=== PATIENT | male | born 1940 ===

== ENCOUNTER 2017-06-06 14:28 | Inpatient (IN) | payer MEDICARE ==
[2017-06-06] MEDS ORDERED: Albuterol 2.5 MG/3 ML NEB.SOL* (0.083%) INH PRN (18:13)
[2017-06-06] MEDS ORDERED: CMCS:Melatonin (NF) 3 MG TAB PO PRN (18:20)
[2017-06-06] MEDS ORDERED: Acetaminophen TAB* 325 MG PO PRN (18:20)
[2017-06-06] MEDS: Senna TAB PO SCH (19:51)
[2017-06-06] MEDS: Morphine TAB Extended Release (*) 15 MG TAB.ER PO SCH (19:52)
[2017-06-06] MEDS: Albuterol 2.5 MG/3 ML NEB.SOL* (0.083%) INH SCH (20:03)
[2017-06-06 20:32] LABS: INR 1.19 (0.77-1.02)
[2017-06-07] MEDS: Ondansetron INJ* 2 MG/ML VIAL IV PRN ×2 (00:02→06:03)
[2017-06-07] MEDS: Morphine INJ* 4 MG/ML 1 ML CARPUJECT IV PRN ×2 (00:40→06:03)
--- NOTE | 2017-06-07 01:20 | HP ---
HISTORY AND PHYSICAL: DATE OF ADMISSION: 06/06/17 REFERRING PHYSICIAN: Dr. Celia Espinosa from [facility]. PRIMARY CARE PHYSICIAN: Dr. Castrejon. ATTENDING AND ADMITTING PHYSICIAN: Dr. Edgar Tiwari.* (DICTATED BY TUTU BARBOZA NP) HISTORY OF PRESENT ILLNESS: This is a 76-year-old male patient who was recently admitted to [facility] after having a biopsy of his liver done on 05/25/17. Of significant note, the patient does have a history of lung cancer. 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 Around 06/01/17, the patient was having some right upper quadrant pain and then that lasted another 2 days. The patient then went to the emergency department at [place] to be evaluated for the abdominal pain that was on 06/03/17. At that point, he was admitted and had several CT scans with and without contrast, serial abdominal exams as well as CT scans showing that he had some intraparenchymal bleed and hematoma within the liver, looks like with some interlesional bleeding. The mass appears to be 6.7 cm and there may be other masses as well. I do not have access to the films at this time, I am just reading the reports, but it does look like they were trying to do a CT angiogram of the belly to determine if this was arterial in nature versus a venous bleed; however, I do not have that report as such. Dr. Tiwari did reach out to Dr. Isidro Colbert to evaluate the films before we accepted the patient for transfer, the patient will be evaluated to see if he can go down to the IR suite if it is in fact an arterial bleed if cautery can be performed to stop the bleeding. In the meantime, the patient did have several transfusions. Three units of packed red blood cells were transfused prior to transfer as well as several units of FFP. The patient's hemoglobin is around 9 and has been stable. He is clinically shortness of breath and does remain clinically short of breath. Also of significant note, he has chronic pleural effusions, looks like it is loculated and does not appear to be any empyema per the notes that I am reading; however, he is oxygen dependent, had some tachycardia as well as shortness of breath with exertion. PAST MEDICAL HISTORY: Significant for COPD, hypothyroidism, hypertension, and history of lung cancer of the right upper lobe with non-small cell carcinoma, status post chemo and radiation. Last treatment approximately 10 years ago. PAST SURGICAL HISTORY: Did have a Mediport placed for his chemotherapy. Also, he has a PICC line in the right upper extremity. ALLERGIES: No known drug allergies. FAMILY HISTORY: Noncontributory. SOCIAL HISTORY: The patient does have a [id number] history of smoking, quit 9 years ago. Also has alcohol, but only socially but has not used any alcohol in the past year. Has no history of drug use. He lives at home with his . He is retired. REVIEW OF SYSTEMS: A 10-point review of systems is negative except as noted in the HPI. PHYSICAL EXAMINATION GENERAL: The patient is awake and alert, mildly anxious. VITAL SIGNS: Are currently, temperature 97.4, pulse 93, respiratory rate 16, oxygen saturation is 99% on 2 L, blood pressure is 119/55. LABORATORY DATA: Laboratories from the sending facility showed WBC is 4.8, hemoglobin 7.5, which was repeated and after transfusion it is now 9.6, hematocrit 29.7, and platelets 158. Sodium 136, potassium 4.6, chloride 96, bicarb 36, BUN 28, creatinine 0.9, glucose 142, AST 914, of significant note, AST was 2143 when he was initially admitted, ALT 1176 which is down from 1711, alk phos 170, which is down from 193. Ammonia level was 32, lipase 54, PT 14.1 , INR 1.1. Gastric occult was positive. Stool occult was negative. Again, CAT scan imaging shows this intraparenchymal hemorrhage and chronic pleural effusions. IMPRESSION: The patient has been accepted for transfer and is accepted to telemetry service. PLAN: He will be seen by Dr. Colbert, who has already been contacted, who will evaluate his CAT scan and determine what the primary course of treatment will be , whether the bleeding is stabilized at this point or he will need additional treatment in the form of ablation in the IR suite. For now, we will continue his morphine sulfate q.12 hours, also with 4 mg IV for breakthrough as needed. Continue his Lopressor 25 mg daily for his hypertension, his levothyroxine 88 mcg daily for his hypothyroidism, Zofran 4 mg as needed for nausea, his albuterol, we will do DuoNeb instead q.6 hours scheduled for shortness of breath , continued on oxygen to keep his sats greater than 90%. He will be on bowel regimen. The patient states he has not had a bowel movement in several days. We will give 1 dose of lactulose now and then daily, and also check his ammonia levels. He can also be on Senokot and Colace. He can have a regular diet for tonight and then we will keep him n.p.o. after the midnight in case he does have a procedure tomorrow with Dr. Colbert. He seems fluid overloaded now. I will also check a BNP as well as a type and screen, INR and labs in the morning , see if he needs any diuresis at this point and hold off on diuresis until we take a look at how he looks in the morning. The rest of the patient's course will be determined by further diagnostics, laboratories, and any other input from other providers as warranted during this admission. Also of significant note, the patient is a DNR. This is confirmed on his MOLST. His is his healthcare proxy and will be in charge of his affairs if the patient is unable to make decisions for himself. TUTU BARBOZA, REMY [id number]/[facility] #: [id number] MTDD
[2017-06-07] MEDS: Albuterol 2.5 MG/3 ML NEB.SOL* (0.083%) INH SCH ×5 (01:42→19:52)
[2017-06-07] MEDS: Morphine TAB Extended Release (*) 15 MG TAB.ER PO SCH ×2 (06:02→21:13)
[2017-06-07] MEDS: Levothyroxine TAB* 88 MCG TAB PO SCH (06:02)
[2017-06-07 06:46] LABS: ABS Basophils 0 10^3/ul (0-0.2); ABS Eosinophils 0 10^3/ul (0-0.6); ABS Lymphocytes 0.2 10^3/ul (1.0-4.8); ABS Monocytes 0.6 10^3/ul (0-0.8); ABS Neutrophils 4.4 10^3/ul (1.5-7.7); ABS Nucleated RBC 0 10^3/ul; Eosinophil % 0.5 % (0-6); Hematocrit 27 % (42-52); Hemoglobin 9.3 g/dl (14.0-18.0); Lymphocyte % 3.1 % (25-47); Mean Corpuscular HGB Conc 35 g/dl (31-36); Mean Corpuscular Hemoglobin 30 pg (27-31); Mean Corpuscular Volume 88 fL (80-94); Mean Platelet Volume 7 um3 (7.4-10.4); Nucleated Red Blood Cells % 0; Platelet Count 165 10^3/ul (150-450); Red Blood Count 3.06 10^6/ul (4.0-5.4); Red Cell Distribution Width 15 % (10.5-15); White Blood Count 5.2 10^3/ul (3.5-10.8)
[2017-06-07 07:05] LABS: EGFR Non-African American 86.2 (>60)
[2017-06-07] MEDS: Metoprolol Tartrate TAB* 25 MG PO SCH (10:55)
[2017-06-07] MEDS: Docusate CAP* 100 MG PO SCH (10:55)
[2017-06-07] MEDS ORDERED: Al Hydrox/Mg Hydrox/Simet LIQ* 30 ML UDC PO PRN (15:23)
--- NOTE | 2017-06-07 15:40 | PN ---
Subjective Date of Service: 06/07/17 Interval History: Transferred from [place] for IR evaluation of liver hematoma. His pain is currently controlled, he has had some nausea with scant emesis. He feels well now. No fevers, chills, diarrhea, and some constipation. Family History: Unchanged from Admission Social History: Unchanged from Admission Past Medical History: Unchanged from Admission Objective Active Medications: Acetaminophen (Tylenol Tab*) 650 mg PO Q6H PRN PRN Reason: FEVER/HEADACHE Al Hydrox/Mg Hydrox/Simethicone (Maalox Plus*) 30 ml PO Q4H PRN PRN Reason: INDIGESTION Albuterol (Ventolin 2.5 Mg/3 Ml Neb.Kelsea*) 2.5 mg INH Q6H [facility] Last Admin: 06/07/17 13:29 Dose: 2.5 mg Docusate Sodium (Colace Cap*) 100 mg PO DAILY [facility] Last Admin: 06/07/17 10:55 Dose: 100 mg Lactulose (Lactulose*) 30 ml PO DAILY [facility] Last Admin: 06/07/17 10:55 Dose: 30 ml Levothyroxine Sodium (Synthroid Tab*) 88 mcg PO DAILY@0600 [facility] Last Admin: 06/07/17 06:02 Dose: 88 mcg Melatonin (Melatonin (Nf)) 3 mg PO BEDTIME PRN PRN Reason: INSOMNIA Metoprolol Tartrate (Lopressor Tab*) 25 mg PO DAILY [facility] Last Admin: 06/07/17 10:55 Dose: 25 mg Morphine Sulfate (Morphine Inj (Syringe)*) 4 mg IV Q4H PRN PRN Reason: PAIN - SEVERE Last Admin: 06/07/17 06:03 Dose: 4 mg Morphine Sulfate (Ms Contin(*)) 15 mg PO Q12H [facility] Last Admin: 06/07/17 06:02 Dose: 15 mg Ondansetron HCl (Zofran Inj*) 4 mg IV Q6H PRN PRN Reason: NAUSEA Last Admin: 06/07/17 06:03 Dose: 4 mg Senna (Senokot Tab*) 1 tab PO BEDTIME [facility] Last Admin: 06/06/17 19:51 Dose: 1 tab Vital Signs - 8 hr 06/07/17 06/07/17 06/07/17 08:00 10:44 11:19 Temperature 97.3 F 97.9 F Pulse Rate 100 95 Respiratory 14 18 18 Rate Blood Pressure 119/55 121/59 (mmHg) O2 Sat by Pulse 96 96 Oximetry 06/07/17 13:34 Temperature Pulse Rate 90 Respiratory 16 Rate Blood Pressure (mmHg) O2 Sat by Pulse 99 Oximetry Oxygen Devices in Use Now: Nasal Cannula Appearance: alert, sitting up in chair Eyes: No Scleral Icterus, PERRLA Ears/Nose/Mouth/Throat: NL Teeth, Lips, Gums Neck: NL Appearance and Movements; NL JVP Respiratory: Symmetrical Chest Expansion and Respiratory Effort, - - crackles b/ l bases Cardiovascular: NL Sounds; No Murmurs; No JVD, RRR Abdominal: NL Sounds; No Tenderness; No Distention, - - liver palpable at costal margin, mildly tender to deep palpation, no guarding or rebound, anicteric Lymphatic: No Cervical Adenopathy Extremities: No Edema Skin: No Rash or Ulcers Neurological: Alert and Oriented x 3 Result Diagrams: 06/07/17 06:00 06/07/17 06:00 Assess/Plan/Problems-Billing Assessment: 76 yo man with history of NSCLC 10 years ago admitted as a transfer from [place] for evaluation by IR of a liver hematoma that was a complication of a recent liver biopsy. - Patient Problems (1) Liver hematoma Current Visit: Yes Status: Acute Code(s): S36.112A - CONTUSION OF LIVER, INITIAL ENCOUNTER SNOMED Code(s): 281816983 Comment: This was a complication of a liver biopsy done at OSH on 05/22. I reviewed the imaging with Dr. Colbert. No IR intervention is necessary. The hematoma (as seen on CTA from outside hospital) did not appear to be actively bleeding, and he recommended conservative management. This certainly accounts for his RUQ pain. I will continue pain control, nausea control, and will recheck a cbc in the morning. If hgb remains stable, he may be able to go home tomorrow. I've discussed this with his family. (2) Liver mass Current Visit: Yes Status: Acute Code(s): R16.0 - HEPATOMEGALY, NOT ELSEWHERE CLASSIFIED SNOMED Code(s): 068350907 Comment: Results reported from OSH show squamous cell. This is most likely recurrence from NSCLCa, however his CT from [place] does not show any lesions. Alternatively, it may be head/neck, esophageal, or anal. His family reports that his oncologist is already in the process of working up the mass and pursuing its origin, and they are anxious to get back to her to continue the work up. No intervention to be done here. (3) Elevated transaminase level Current Visit: Yes Status: Acute Code(s): R74.0 - NONSPEC ELEV OF LEVELS OF TRANSAMNS & LACTIC ACID DEHYDRGNSE SNOMED Code(s): 608852680 Comment: His AST/ALT peaked at the osh in the thousands, now down to the hundreds. This is a shock liver pattern, and I suspect he had some relative hypotension in the setting of this bleed. I doubt he had viral hepatitis to explain that level of lft elevation, but I will send of a hcv, hbv and hav ab. (4) Blood loss anemia Current Visit: Yes Status: Acute Code(s): D50.0 - IRON DEFICIENCY ANEMIA SECONDARY TO BLOOD LOSS (CHRONIC) SNOMED Code(s): 007679843 Comment: Likely explained by the 7cm hematoma in his liver. I reviewed the cta with radiology, and no esophageal or gastric varices were seen on the cta. This certainly does not rule them out, but this is reassuring that a gi loss is unlikely. S/p 3u prbcs at osh. His goal hgb is >8.0.
[2017-06-07] MEDS ORDERED: Albuterol/Ipratropium NEB.SOL* Albuterol 2.5 MG/Ipratropium 0.5 MG 3 ML ONE (15:49)
[2017-06-07] MEDS ORDERED: Albuterol/Ipratropium NEB.SOL* Albuterol 2.5 MG/Ipratropium 0.5 MG 3 ML INH PRN (15:49)
--- NOTE | 2017-06-07 16:52 | RAD ---
INDICATION: Hypoxia. COMPARISON: Comparison is made with prior chest x-ray study from September 24, 2009. TECHNIQUE: A portable view of the chest was obtained. FINDINGS: The heart appears within normal limits in size. There is a PICC present. The catheter tip projects overlying the right atrium. There is volume loss in the right lung and pleural thickening at the right lung apex which appears similar to the prior study taken into account differences in technique. In addition there is pleural thickening or pleural effusion at the right lung base which may be new. The left lung appears clear. IMPRESSION: CHRONIC VOLUME LOSS AND PLEURAL REACTION IN THE RIGHT LUNG WITH THE POSSIBILITY OF A NEW SMALL PLEURAL EFFUSION VERSUS ADDITIONAL THICKENING.
[2017-06-07] MEDS ORDERED: Furosemide IV* 10 MG/ML 2 ML VIAL (20 MG) ONE ×2 (17:34→18:07)
[2017-06-07] MEDS: Furosemide IV* 10 MG/ML 2 ML VIAL (20 MG) IV SCH ×2 (17:36→21:12)
--- NOTE | 2017-06-07 17:42 | PN ---
Hospitalist Progress Note Date of Service: 06/07/17 Called by RN for hypoxia to mid-70s on 2L O2. A stat CXR shows decreased lung volumes (h/o lobectomy) and pleural effusion. On exam, he is resting with his at the bedside. He is tachypneic but in no distress. His only complaint is feeling sleepy. Rhonchi are present through both lungs, and he has a wet cough. A/P: acute hypoxic respiratory failure, likely volume overload from recent blood transfusions and volume resuscitation at outside hospital. lasix 20mg IV stat; will follow closely overnight.
[2017-06-07] MEDS ORDERED: Furosemide IV* 10 MG/ML 2 ML VIAL (20 MG) IV ONE (18:12)
--- NOTE | 2017-06-07 18:46 | PN ---
Hospitalist Progress Note Date of Service: 06/07/17 Re-evaluated Mr. Araujo for work of breathing with his nurse and respiratory therapy. He continues to be tachypneic and hypoxic on 4-6L O2. He denies shortness of breath or chest pain. I'm ordering stat labs. Bipap contraindicated due to copious secretions. Will transfer to ICU for high flow nasal canula. Needs bladder scan to ensure no false passage or clot. Repeat lasix ordered. I discussed code status again with him and his daughter; he does not want to be intubated.
[2017-06-07 19:00] LABS: ABS Basophils 0 10^3/ul (0-0.2); ABS Eosinophils 0 10^3/ul (0-0.6); ABS Lymphocytes 0.1 10^3/ul (1.0-4.8); ABS Monocytes 0.5 10^3/ul (0-0.8); ABS Neutrophils 4.8 10^3/ul (1.5-7.7); ABS Nucleated RBC 0 10^3/ul; Eosinophil % 0.4 % (0-6); Hematocrit 30 % (42-52); Hemoglobin 9.9 g/dl (14.0-18.0); Mean Corpuscular HGB Conc 33 g/dl (31-36); Mean Corpuscular Hemoglobin 29 pg (27-31); Mean Corpuscular Volume 88 fL (80-94); Mean Platelet Volume 8 um3 (7.4-10.4); Nucleated Red Blood Cells % 0.2; Platelet Count 231 10^3/ul (150-450); Red Blood Count 3.38 10^6/ul (4.0-5.4); Red Cell Distribution Width 15 % (10.5-15); White Blood Count 5.5 10^3/ul (3.5-10.8)
[2017-06-07] MEDS ORDERED: Piperacillin/Tazobac ADVAN(*) 3.375 GM in NS 0.9% 100 ML* 100 ML IVPB ONE (19:00)
[2017-06-07 19:13] LABS: EGFR Non-African American 87.4 (>60)
[2017-06-07] MEDS: Senna TAB PO SCH (20:28)
--- NOTE | 2017-06-07 21:56 | PN ---
Progress Note - Progress Note Date of Service: 06/07/17 Note: Patient confused, somnolent with increase work of breathing. ABG shows mild hypercapnea - trial of BiPAP shows improvement in work of breathing.
[2017-06-08] MEDS ORDERED: Piperacillin/Tazobactam 13.5 GM IV 24 hour continuous infusion IVPB SCH ×2 (01:00)
[2017-06-08] MEDS ORDERED: Morphine INJ* 2 MG/ML 1 ML CARPUJECT IV PRN ×2 (02:25→04:46)
[2017-06-08] MEDS ORDERED: Morphine INJ* 2 MG/ML 1 ML SYRINGE (TWO MG - NEW SYRINGE VERSION) IV ONE (03:15)
[2017-06-08] MEDS: Albuterol 2.5 MG/3 ML NEB.SOL* (0.083%) INH SCH ×4 (03:24→19:39)
[2017-06-08] MEDS ORDERED: Morphine INJ* 2 MG/ML 1 ML CARPUJECT IV ONE (04:00)
[2017-06-08] MEDS ORDERED: Furosemide IV* 10 MG/ML 10 ML VIAL (100 MG) IV ONE (04:45)
[2017-06-08] MEDS ORDERED: Furosemide IV* 10 MG/ML 10 ML VIAL (100 MG) ONE (04:58)
[2017-06-08] MEDS ORDERED: Morphine INJ* 4 MG/ML 1 ML CARPUJECT IV ONE (05:35)
[2017-06-08] MEDS: Morphine INJ* 2 MG/ML 1 ML CARPUJECT IV PRN ×2 (05:37→07:12)
[2017-06-08 05:57] LABS: ABS Basophils 0 10^3/ul (0-0.2); ABS Eosinophils 0 10^3/ul (0-0.6); ABS Lymphocytes 0.1 10^3/ul (1.0-4.8); ABS Monocytes 0.3 10^3/ul (0-0.8); ABS Neutrophils 4.6 10^3/ul (1.5-7.7); ABS Nucleated RBC 0 10^3/ul; Eosinophil % 0.1 % (0-6); Hematocrit 30 % (42-52); Lymphocyte % 1.6 % (25-47); Mean Corpuscular HGB Conc 33 g/dl (31-36); Mean Corpuscular Hemoglobin 29 pg (27-31); Mean Corpuscular Volume 89 fL (80-94); Mean Platelet Volume 7 um3 (7.4-10.4); Nucleated Red Blood Cells % 0.2; Platelet Count 200 10^3/ul (150-450); Red Blood Count 3.39 10^6/ul (4.0-5.4); Red Cell Distribution Width 15 % (10.5-15)
[2017-06-08 06:05] LABS: EGFR Non-African American 59.9 (>60)
[2017-06-08] MEDS: Morphine TAB Extended Release (*) 15 MG TAB.ER PO SCH ×2 (06:44→18:08)
[2017-06-08] MEDS: Levothyroxine TAB* 88 MCG TAB PO SCH (06:45)
[2017-06-08] MEDS ORDERED: Morphine INJ* 4 MG/ML 1 ML CARPUJECT IV PRN (07:22)
--- NOTE | 2017-06-08 08:14 | RAD ---
INDICATION: Shortness of breath in a patient with liver hematoma approximately 2 weeks status post liver biopsy. COMPARISON: Most recent chest x-ray dated June 07, 2017 TECHNIQUE: Single AP portable view of the chest was obtained. FINDINGS: Image quality is compromised due to the relative inferiority of a portable chest x-ray. There is complete "white out" of the right lung. The left lung is adequately aerated and defined. The left mediastinum and left heart borders are adequately defined. A right-sided PICC line terminates at the superior vena cava. IMPRESSION: Interval development of right lung "white out" which can be seen due to consolidation of the right lung, pneumonia or large pleural effusion.
--- NOTE | 2017-06-08 08:20 | PN ---
Hospitalist Progress Note Date of Service: 06/08/17 Met with family at 7:15 this morning and reiterated poor prognosis. On max vapotherm, family declines bipap or intubation, he is tachypneic, but in no distress. Awaiting call from Jodie to discuss bronchoscopy.
[2017-06-08] MEDS: Docusate CAP* 100 MG PO SCH (09:27)
[2017-06-08] MEDS: Metoprolol Tartrate TAB* 25 MG PO SCH (09:27)
[2017-06-08] MEDS: Furosemide IV* 10 MG/ML 2 ML VIAL (20 MG) IV SCH ×2 (09:40→20:54)
[2017-06-08] MEDS ORDERED: Acetaminophen SUPP* 650 MG SUPP PR PRN (10:41)
[2017-06-08] MEDS ORDERED: Atropine 1% (ORAL/SL)* 15 ML BTL SL PRN (10:41)
[2017-06-08] MEDS ORDERED: Morphine PCA ADULT* 5 MG/ML 30 ML PCA SCH (11:00)
[2017-06-08 12:23] VITALS: BP 89/53
--- NOTE | 2017-06-08 13:03 | PN ---
Subjective Date of Service: 06/08/17 Interval History: Overnight, he continued to be hypoxic and was started on bipap. He became agitated and took the bipap; with his family it was decided not to put it back on him. He did not diurese despite 160mg of lasix. Dr. Rahman updated his family, and they have all arrived this morning. Family History: Unchanged from Admission Social History: Unchanged from Admission Past Medical History: Unchanged from Admission Objective Active Medications: Acetaminophen (Tylenol Tab*) 650 mg PO Q6H PRN PRN Reason: FEVER/HEADACHE Acetaminophen (Tylenol Supp*) 650 mg [place] Q4H PRN PRN Reason: FEVER Albuterol (Ventolin 2.5 Mg/3 Ml Neb.Kelsea*) 2.5 mg INH [id number] AWAKE [facility] Last Admin: 06/08/17 08:40 Dose: Not Given Albuterol/Ipratropium (Duoneb (Albuterol 2.5 Mg/Ipratropium 0.5 Mg)) 1 neb INH Q4H PRN PRN Reason: SOB/WHEEZING Atropine Sulfate (Atropine 1% (Oral/Sl)*) 2 drop SL Q2H PRN PRN Reason: Terminal Secretions Docusate Sodium (Colace Cap*) 100 mg PO DAILY [facility] Last Admin: 06/08/17 09:27 Dose: Not Given Furosemide (Lasix Iv*) 20 mg IV BID [facility] Last Admin: 06/08/17 09:40 Dose: 20 mg Piperacillin Sod/Tazobactam (Sod 13.5 gm/ Sodium Chloride) 500 mls @ 20.833 mls /hr IVPB Q24H [facility] Last Admin: 06/08/17 01:17 Dose: 20.833 mls/hr Morphine Sulfate (Morphine Physiotherapy Assistant Adult* 5 Mg/Ml) 30 mls @ 0 mls/hr RN FACULTY .change Q24H [facility]; Per Protocol PRN Reason: Protocol Last Admin: 06/08/17 12:19 Dose: 1.6 mls/hr Lactulose (Lactulose*) 30 ml PO DAILY [facility] Last Admin: 06/08/17 09:27 Dose: Not Given Melatonin (Melatonin (Nf)) 3 mg PO BEDTIME PRN PRN Reason: INSOMNIA Morphine Sulfate (Ms Contin(*)) 15 mg PO Q12H [facility] Last Admin: 06/08/17 06:44 Dose: Not Given Morphine Sulfate (Morphine Inj (Syringe)*) 4 mg IV Q1HR PRN PRN Reason: PAIN - SEVERE Ondansetron HCl (Zofran Inj*) 4 mg IV Q6H PRN PRN Reason: NAUSEA Last Admin: 06/07/17 06:03 Dose: 4 mg Vital Signs - 8 hr 06/08/17 06/08/17 06/08/17 05:00 05:01 05:15 Pulse Rate 122 120 119 Respiratory 30 33 25 Rate Blood Pressure 113/74 81/53 (mmHg) O2 Sat by Pulse 88 90 88 Oximetry 06/08/17 06/08/17 06/08/17 05:30 05:37 05:45 Pulse Rate 117 115 Respiratory 26 25 23 Rate Blood Pressure 107/53 90/54 (mmHg) O2 Sat by Pulse 88 88 Oximetry 06/08/17 06/08/17 06/08/17 06:00 06:14 06:15 Pulse Rate 116 115 Respiratory 25 26 23 Rate Blood Pressure 86/56 86/54 (mmHg) O2 Sat by Pulse 88 89 Oximetry 06/08/17 06/08/17 06/08/17 06:21 06:30 06:45 Pulse Rate 116 116 Respiratory 30 29 31 Rate Blood Pressure 91/59 88/63 (mmHg) O2 Sat by Pulse 88 89 Oximetry 06/08/17 06/08/17 06/08/17 07:00 07:12 07:15 Pulse Rate 120 115 Respiratory 28 27 25 Rate Blood Pressure 97/52 102/46 (mmHg) O2 Sat by Pulse 85 80 Oximetry 06/08/17 06/08/17 06/08/17 07:30 07:45 08:00 Pulse Rate 117 119 119 Respiratory 26 25 26 Rate Blood Pressure 96/52 96/50 (mmHg) O2 Sat by Pulse 82 86 84 Oximetry 06/08/17 06/08/17 06/08/17 09:00 10:00 11:00 Pulse Rate 119 117 116 Respiratory 25 26 27 Rate Blood Pressure 90/52 97/54 93/53 (mmHg) O2 Sat by Pulse 90 93 93 Oximetry 06/08/17 06/08/17 12:00 12:19 Pulse Rate 117 Respiratory 25 26 Rate Blood Pressure 89/53 (mmHg) O2 Sat by Pulse 94 Oximetry Oxygen Devices in Use Now: High Flow Heated Nasal Cannula Appearance: sleeping, tachycardic, tachypneic, grimaces occasionally Eyes: No Scleral Icterus Ears/Nose/Mouth/Throat: - - edentulous Respiratory: - - rhonchorous, tachypneic Cardiovascular: - - tachycardic Lymphatic: No Cervical Adenopathy Extremities: No Edema Result Diagrams: 06/08/17 05:30 06/08/17 05:30 Assess/Plan/Problems-Billing Assessment: 76 yo man with history of NSCLC 10 years ago admitted as a transfer from [place] for evaluation by IR of a liver hematoma that was a complication of a recent liver biopsy. - Patient Problems (1) Acute and chronic respiratory failure with hypoxia Current Visit: Yes Status: Acute Code(s): J96.21 - ACUTE AND CHRONIC RESPIRATORY FAILURE WITH HYPOXIA SNOMED Code(s): 943175494 Comment: Etiology is broad, and includes mucus plug causing white out of right lung, PE, ARDS, pneumonia, and volume overload. Unfortunately he did not respond to diuresis and antibiotics yesterday, and has declined precipitiously overnight. His family declines intubation and bipap. Vapotherm is maxed. I discussed the possibility of a bronchoscopy with Dr. Feliciano, but he thinks it is too high risk and may not be of benefit. I discussed the poor prognosis with his family and suggested that he may not survive the day. They are all here to say their goodbyes. We will transition to comfort care at this time. (2) Need for comfort care Current Visit: Yes Status: Acute Code(s): [id number] - SNOMED Code(s): 873707302 (3) Oliguria Current Visit: Yes Status: Acute Code(s): R34 - ANURIA AND OLIGURIA SNOMED Code(s): 16036601 Comment: I suspect most likely ATN versus thrombosis. UOP has dropped overnight despite lasix and billings catheter. (4) Liver hematoma Current Visit: Yes Status: Acute Code(s): S36.112A - CONTUSION OF LIVER, INITIAL ENCOUNTER SNOMED Code(s): 874976799 Comment: No IR intervention recommended. Hgb stable. (5) Liver mass Current Visit: Yes Status: Acute Code(s): R16.0 - HEPATOMEGALY, NOT ELSEWHERE CLASSIFIED SNOMED Code(s): 599881799 Comment: Comfort care as above. (6) Elevated transaminase level Current Visit: Yes Status: Acute Code(s): R74.0 - NONSPEC ELEV OF LEVELS OF TRANSAMNS & LACTIC ACID DEHYDRGNSE SNOMED Code(s): 381387173 Comment: His AST/ALT peaked at the osh in the thousands, now down to the hundreds. This is a shock liver pattern, and I suspect he had some relative hypotension in the setting of this bleed. (7) Blood loss anemia Current Visit: Yes Status: Acute Code(s): D50.0 - IRON DEFICIENCY ANEMIA SECONDARY TO BLOOD LOSS (CHRONIC) SNOMED Code(s): 036549923 Comment: Likely explained by the 7cm hematoma in his liver. (8) Metastatic squamous cell carcinoma Current Visit: Yes Status: Acute Code(s): C79.9 - SECONDARY MALIGNANT NEOPLASM OF UNSPECIFIED SITE; C80.1 - MALIGNANT (PRIMARY) NEOPLASM, UNSPECIFIED SNOMED Code(s): 822106834
--- NOTE | 2017-06-08 22:54 | PN ---
Progress Note - Progress Note Date of Service: 06/08/17 Note: Patient at 2245. Was comfortable prior to passing. Family members notified and on their way in now. No spontaneous respirations or heart sounds. Please see full d/c summary for further details Cause of - respiratory failure secondary to metastatic squamous cell carcinoma Time of : 2244 on 06/08/17
--- NOTE | 2017-06-09 19:17 | DS ---
CC: Dr. Castrejon * SUMMARY: DATE OF ADMISSION: 06/06/17 DATE OF EXPIRATION: 06/08/17 at 2245 PRIMARY CARE PHYSICIAN: Dr. Castrejon. CAUSE OF : Metastatic squamous cell carcinoma, poorly differentiated with acute respiratory failure. SECONDARY DIAGNOSES: 1. Liver hematoma. 2. Acute renal failure. 3. Chronic obstructive pulmonary disease. 4. Hypothyroidism. 5. Hypertension. HOSPITAL COURSE: Please refer to complete medical records for detailed information of his hospital course. In summary, this was a 76-year-old male with a history of right upper lobe non-small cell carcinoma who was found to have a liver nodule who had a biopsy done at [facility] that was found to be poorly differentiated squamous cell carcinoma. He had the biopsy on 05/25, returned to [place] on 06/01/17 for worsening right upper quadrant pain, found to have a significant liver hematoma. He was given several transfusions. There was concern about persistent bleeding and the possibility of embolization and he was transferred here to be evaluated by IR for a possible embolization. When he arrived here on 06/06/17, his H and H had remained stable and the goal was to monitor him overnight and plan for discharge the following day. Unfortunately, on the 06/07/17, the patient became acutely hypoxic with increased work of breathing and was transferred to the ICU and placed on Vapotherm. His blood gas showed mild hypercapnic respiratory failure. He was placed on BiPAP. He tolerated that briefly and then became more restless, agitated, refusing the BiPAP and chest x-ray showed a complete efrain out of lung on the right side. He was not responsive to high dose Lasix. The daughter and all the family members came in the evening of the 06/07 to discuss goals of care. They felt that they did not want him to go back on the BiPAP. He was clear that he did not want intubation or resuscitation and they felt that he would not even want to seek treatment for his new cancer diagnosis and the goal was to keep him comfortable. The patient was started on more frequent morphine doses. He was weaned down on the Vapotherm. Several family members were at the bedside and he was comfortable and he passed peacefully at 2245 on 06/08/17. The family was not at the bedside at his passing, but they are on their way in currently. [id number]/[facility] #: [id number] [facility] HOSPITALParesh
== END 2017-06-08 22:45 | disposition expired | DRG 919 ==
LOC: MEDTELE 17:07 → ICU 06-07 19:15
PROVIDERS: ADMIT Internal Medicine; ATTEND Pediatrics
DX: K91.870 Postprocedural hematoma of a digestive system organ or structure following a digestive system procedure (principal); J96.21 Acute and chronic respiratory failure with hypoxia; K72.00 Acute and subacute hepatic failure without coma; N17.0 Acute kidney failure with tubular necrosis; C78.7 Secondary malignant neoplasm of liver and intrahepatic bile duct; D62 Acute posthemorrhagic anemia; R74.0 Nonspecific elevation of levels of transaminase and lactic acid dehydrogenase [LDH]; J44.9 Chronic obstructive pulmonary disease, unspecified; Z99.81 Dependence on supplemental oxygen; E03.9 Hypothyroidism, unspecified; I10 Essential (primary) hypertension; Z85.118 Personal history of other malignant neoplasm of bronchus and lung; Z87.891 Personal history of nicotine dependence
CPT/HCPCS: 36415; 71045; 80053; 82140; 82248; 82803; 83605; 83735; 83880; 84100; 85025; 85610; 86850; 86900; 86901; 87040; 94640; A9270-GY; J1940; J2270; J2405; J2543